=== PATIENT | male | born 1990 | race Two or more races ===

== ENCOUNTER 2022-05-02 12:24 | Emergency (ER) | payer MEDICAID, SELFPAY ==
--- NOTE | ~2022-05-02 | XR_ITS ---
EXAMINATION: XR SHOULDER, RIGHT CLINICAL INFORMATION: Pain. COMPARISON: None TECHNIQUE: AP external rotation, Grashey, scapular Y, and axillary views of the right shoulder. FINDINGS: The bones and soft tissues are normal. No fracture. Glenohumeral and acromioclavicular alignment is anatomic with normal joint space. No abnormal soft tissue calcifications. XR/XR shoulder RT min 2V IMPRESSION: Normal right shoulder.
[2022-05-02 12:31] VITALS: PULSE 100; RESP 16; TEMP 36.6; O2SAT 97; BMI 32.3
--- NOTE | 2022-05-02 15:52 | ED_ITS ---
HPI - Extremity Problem General Chief complaint: Extremity Injury, Upper Stated complaint: R shoulder pain Time Seen by Provider: 05/02/22 15:51 Source: patient Mode of arrival: ambulatory Limitations: no limitations History of Present Illness HPI Narrative: 32 yo male who is right handed here with complaints of acute on chronic right shoulder pain with radiation down the right arm x weeks. Patient reports [facility] while he was incarcerated he had some pain in the same arm after doing heavy weight lifting. it seemed to improve however his current job requires heavy lifting and for the last few weeks he has had worsening pain in the right shoulder which radiates down the limb. No reports of associated weakness, numbness, tingling of the extremity. Related Data Previous Rx's Medication Instructions Recorded cyclobenzaprine 10 mg tablet 10 mg PO TID PRN muscle spasm #20 05/02/22 tabs ibuprofen 800 mg tablet 800 mg PO TID PRN pain #30 tabs 05/02/22 prednisone 20 mg tablet 40 mg PO DAILY #10 tabs 05/02/22 Allergies Allergy/AdvReac Type Severity Reaction Status Date / Time No Known Allergies Allergy Verified 05/02/22 12:31 [No Known Allergies*] Review of Systems Review of Systems: Yes all other systems are reviewed and are negative Constitutional: Constitutional: Reports no additional constitutional complaints, Denies body ache(s), Denies chills, Denies fever(s), Denies headache(s) and Denies weakness Eyes: Eyes: Reports no additional eye complaints and Denies change in vision ENT: Reports system reviewed and no additional complaints, except as documented, Denies dizziness, Denies headache(s), Denies nasal congestion, Denies nasal discharge and Denies neck pain Cardiovascular: Cardiovascular: Reports no additional cardiovascular complaints, Denies chest pain, Denies leg edema and Denies dyspnea Respiratory: Respiratory: Reports no additional respiratory complaints, Denies cough and Denies dyspnea Gastrointestinal: Gastrointestinal: Reports no additional gastrointestinal complaints, Denies abdominal pain, Denies diarrhea, Denies nausea and Denies vomiting Genitourinary: Genitourinary: Denies urinary incontinence Musculoskeletal: Musculoskeletal: Reports no additional musculoskeletal complaints, Denies back pain, Reports arthralgias, Denies joint swelling, Reports limited range of motion, Denies neck pain, Denies numbness and Denies tingling Integumentary/Breasts: Skin/Breast: Reports system reviewed and no additional complaints, except as docu and Denies rash Neurologic: Reports system reviewed and no additional complaints, except as documented, Denies Abnormal speech present, Denies dizziness, Denies headache(s), Denies numbness, Denies tingling and Denies weakness PMFSH Past Medical History Attestation statement: The following information was validated with the patient. Source: old records reviewed and nursing notes reviewed Social History Social History Advance Directives: No Advance Directives Information Provided: No Physical Exam Vital Signs: Vital Signs: Last Vital Signs Temp 98.6 F 05/02/22 15:55 Pulse 96 05/02/22 15:55 Resp 16 05/02/22 12:31 BP 120/70 05/02/22 15:55 Pulse Ox 98 05/02/22 15:55 O2 Del Method 05/02/22 15:55 BMI result Body Mass Index 32.3 Const: General: cooperative, healthy appearing, comfortable and no acute distr ess Orientation/consciousness: patient oriented x3 Limitations: no limitations HEENT: Head: Yes normal to inspection Ears: hearing grossly normal bilaterally General nose exam: Normal external nose present Face and sinus: Yes normal facial exam Mouth: Normal oral and palatal mucosa present Throat: Yes posterior oropharynx normal Eyes: General: appearance normal, both eyes and all related structures Pupils: Equal, round and reactive pupils present Neck: Other: no cervical midline tenderness/step offs or deformities with FROM Neck: Yes normal visual inspection Neck images: 1. Tenderness over the right trapezius with +palpable muscle spasm +spurlings test. Pain improved with abduction of the shoulder Chest: Chest palpation & inspection: normal inspection of the chest Resp: Effort & Inspection: normal respiratory effort Auscultation: clear to auscultation bilaterally Cardio: Rate: regular rate Rhythm: regular rhythm Peripheral pulses: Peripheral pulses 2+ throughout GI: Inspection: Yes normal to inspection Palpation (GI): Soft to palpation and nontender Auscultation: normal bowel sounds Back/Spine/Pelvis: Thoracic/Lumbar Spine: thoracic and lumbar spine normal to inspection Skin: General skin exam: no rashes or lesions noted Neuro: General: patient oriented x3, moves all extremities, no focal motor deficits and normal sensation to monofilament Cranial nerves: Yes Equal, round and reactive pupils present Cognition (Neuro): normal cognition S peech: No Abnormal speech present Gait exam (Neuro): Normal gait present Motor exam (neuro): 5/5 motor strength present throughout Sensory Exam: Normal double simultaneous stimulation for sensation Extrem: Other: FROM of right shoulder. 5/5 strength. NV intact distally. 2+ radial/ulnar pulses. General: Yes normal to inspection, Yes full ROM and Yes capillary refill normal Course Course Course Narrative: X-rays show no bony abnormality. Exam c/w with cervical radiculopathy. Will start NSAID, low dose muscle relaxant, prednisone course. Recommend establishing a PCP for follow-up. Reviewed worrisome signs/symptoms with patient and when to seek additional care. Comfortable with discharge home. MDM - Extremity (Nontraumatic) MDM Narrative Medical decision making narrative: 32 yo male here with acute on chronic right shoulder pain with radiation down the right arm with no associated weakness/numbness/tingling. On exam patient has palpable muscle spasm and tenderness over the right trapezius with FROM of the right upper extremity. +Spurlings test and improvement with shoulder abduction indicative of cervical radiculopathy. No neurological deficits or red flag symptoms. Considered cord compression but less lilely with normal strength of UE, no weakness/numbness/tingling reported Considered epidural abscess but less likely with no history of immunocompromised state, no fevers, chills reported and normal neuro exam. X-rays of shoulder ordered from triage Medical Records Attestation: I reviewed the patient's medical records. Lab Data Attestation: I reviewed the patient's lab results. Imaging Data right shoulder x-ray: Attestation: I personally reviewed and interpreted this imaging study as follows: Radiologist's impression: EXAMINATION: XR SHOULDER, RIGHT CLINICAL INFORMATION: Pain.? COMPARISON: None? TECHNIQUE: AP external rotation, Grashey, scapular Y, and axillary views of the right shoulder. FINDINGS: The bones and soft tissues are normal. No fracture. Glenohumeral and acromioclavicular alignment is anatomic with normal joint space. No abnormal soft tissue calcifications.? XR/XR shoulder RT min 2V IMPRESSION: Normal right shoulder. Discharge Plan Discharge Clinical Impression: Cervical radiculopathy Patient Disposition: Home, Self-Care Instructions: Cervical Radiculopathy (ED) Additional Instructions: Heat to the area gentle massage No heavy lifting for a few days Establish a PCP Prescriptions: New ibuprofen 800 mg tablet 800 mg PO TID PRN (Reason: pain) Qty: 30 0RF cyclobenzaprine 10 mg tablet 10 mg PO TID PRN (Reason: muscle spasm) Qty: 20 0RF prednisone 20 mg tablet 40 mg PO DAILY Qty: 10 0RF Stand Alone Forms: Work/School Release Interventions: ED Discharge Assessment Last Done: 05/02/22 16:09 Discharge Date/Time: 05/02/22 16:10
[2022-05-02 15:55] VITALS: BP 120/70; PULSE 96; TEMP 37; O2SAT 98
== END 2022-05-02 16:10 | disposition home or self-care (01) ==
LOC: HO.ED 16:06
PROVIDERS: Emergency Provider Emergency Medicine
DX: M54.12 Radiculopathy, cervical region (principal); M25.511 Pain in right shoulder
CPT/HCPCS: 73030; 99283

== ENCOUNTER 2023-01-11 22:44 | Emergency (ER) | payer OTHER, SELFPAY ==
[2023-01-11 22:49] VITALS: BP 142/92; PULSE 87; RESP 16; O2SAT 98; BMI 26.6
[2023-01-11] MEDS: Ondansetron ODT 4 MG TAB.RAPDIS TRANSLINGU (23:06)
[2023-01-11] MEDS: Famotidine 20 MG TABLET PO (23:06)
--- NOTE | 2023-01-12 00:24 | ED_ITS ---
HPI - Alcohol General Chief Complaint: ETOH/Substance Use Stated Complaint: ETOH/Vomiting Time Seen by Provider: 01/11/23 22:58 Source: patient Mode of arrival: ambulatory Limitations: no limitations History of Present Illness HPI narrative: Patient had alcohol drinks outside liquor store been complaining of vomiting with mild epigastric pain no history of pancreatitis no fever no chills no history of similar complaints in the past Related Data Previous Rx's Medication Instructions Recorded cyclobenzaprine 10 mg tablet 10 mg PO TID PRN muscle spasm #20 05/02/22 tabs ibuprofen 800 mg tablet 800 mg PO TID PRN pain #30 tabs 05/02/22 prednisone 20 mg tablet 40 mg PO DAILY #10 tabs 05/02/22 famotidine 40 mg tablet (Pepcid) 40 mg PO DAILY #14 tabs 01/12/23 ondansetron 4 mg disintegrating 4 mg PO Q6-8H PRN nausea and 01/12/23 tablet vomiting #7 tabs Allergies Allergy/AdvReac Type Severity Reaction Status Date / Time No Known Allergies Allergy Verified 05/02/22 12:31 [No Known Allergies*] Review of Systems Review of Systems: Yes all other systems are reviewed and are negative [facility] Social History Social History Alcohol intake: current Alcohol type: beer and wine Smoked in Last 30 Days: Yes Use of substances other than those prescribed or required for medical reasons: No Advance Directives: No Advance Directives Information Provided: Yes Physical Exam ED Vital Signs: Vital Signs - 24 hr 01/11/23 22:49 Pulse Rate 87 Respiratory Rate 16 Blood Pressure 142/92 H Pulse Oximetry 98 Oxygen Delivery Method Room Air BMI result Body Mass Index 26.6 Appearance: Alert. Oriented X3. No acute distress. Eyes: PERRLA, No Nystagmus no pallor or icterus ENT: Pharynx normal. Oral Mucosa moist Neck: Normal inspection. Neck supple. CVS: Normal heart rate and rhythm. Pulses normal. Respiratory: No respiratory distress. Equal air entry bilateral, no wheezing/rales/rhonchi Abdomen: Soft and mild epigastric tenderness Bowel sounds are present, no mass palpable, no CVA tenderness Skin: Skin warm and dry. Normal skin color. Normal skin turgor. Neuro: Oriented X 3. No motor deficit. Medical Decision Making Medical Decision Making MDM Narrative: Patient with alcoholic gastritis taking p.o. fluids now feeling much better after Zofran and Pepcid will discharge patient Medications Administered Discontinued Medications Generic Name Dose Route Start Last Admin Trade Name Freq PRN Reason Stop Dose Admin Famotidine 20 mg 01/11/23 23:00 01/11/23 23:06 Famotidine 20 Mg Tablet PO 01/11/23 23:01 20 mg ONCE ONE Administration Ondansetron HCl 4 mg 01/11/23 23:00 01/11/23 23:06 Ondansetron Odt 4 Mg Tab.Rapdis TRANSLINGU 01/11/23 23:01 4 mg ONCE ONE Administration Discharge Plan Discharge Clinical Impression: Acute alcoholic gastritis Patient Disposition: Home, Self-Care Instructions: Gastritis (ED) Additional Instructions: Drink plenty of fluids Pepcid for gastritis Zofran for nausea as needed stop drinking alcohol Prescriptions: New famotidine [Pepcid] 40 mg tablet 40 mg PO DAILY Qty: 14 0RF ondansetron 4 mg tablet,disintegrating 4 mg PO Q6-8H PRN (Reason: nausea and vomiting) Qty: 7 0RF No Action ibuprofen 800 mg tablet 800 mg PO TID PRN (Reason: pain) Qty: 30 0RF cyclobenzaprine 10 mg tablet 10 mg PO TID PRN (Reason: muscle spasm) Qty: 20 0RF prednisone 20 mg tablet 40 mg PO DAILY Qty: 10 0RF
== END 2023-01-12 00:26 | disposition home or self-care (01) ==
PROVIDERS: Emergency Provider Internal Medicine; PCP Family Medicine
DX: K29.20 Alcoholic gastritis without bleeding (principal); F10.20 Alcohol dependence, uncomplicated; Y90.9 Presence of alcohol in blood, level not specified
CPT/HCPCS: 99283; 99284

== ENCOUNTER 2023-04-19 12:49 | Emergency (ER) | payer OTHER, SELFPAY ==
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
--- NOTE | ~2023-04-19 | CT_ITS ---
Attempted CT scan chest abdomen and pelvis. Preliminary fertilizer supervisor views acquired. Exam was aborted. Patient refused the study.
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
[2023-04-19 13:19] VITALS: BP 142/86; PULSE 68; RESP 18; TEMP 36.6; O2SAT 98; BMI 27.4
[2023-04-19 13:58] LABS: MANUAL DIFF FLAG NO
[2023-04-19 14:03] LABS: Basophils Absolute Auto 0.1 X10*3/uL (0.0-0.2); Basophils Percent Auto 0.8 % (0-2); Eosinophils Absolute Auto 0.3 X10*3/uL (0.0-0.4); Eosinophils Percent Auto 3.1 % (0-4); Hematocrit 43.5 % (42.0-52.0); Hemoglobin 14.7 g/dl (14.0-18.0); Imm Gran Abs Auto 0.02 X10*3/uL (0.00-0.03); Imm Gran Pct Auto 0.2 % (0.0-0.4); Lymphocytes Absolute Auto 2.7 X10*3/uL (1.2-4.9); Lymphocytes Percent Auto 29.1 % (20-40); Mean Corpuscular HGB Conc 33.8 g/dl (31.0-36.0); Mean Corpuscular Volume 97.5 fL (80.0-98.0); Mean Platelet Volume 9.4 fL (9.4-12.4); Monocytes Absolute Auto 1.2 X10*3/uL (0.1-1.2); Monocytes Percent Auto 13.4 % (2-11); Neutrophils Absolute Auto 4.9 x10*3/uL (2.0-8.3); Neutrophils Percent Auto 53.4 % (45-73); Platelet Count 279 X10*3/uL (160-400); Red Blood Count 4.46 X10*6/uL (4.60-5.80); Red Cell Distribution Width 12.1 % (11.0-16.0); White Blood Count 9.2 X10*3/uL (4.8-10.8)
[2023-04-19 14:05] LABS: INTERNATIONAL NORM RATIO 0.9 (0.9-1.1); Prothrombin Time 10.7 SEC (11.1-13.3)
[2023-04-19 14:08] LABS: Partial Thromboplastin Time 30.8 SEC (26.0-36.4)
[2023-04-19 14:16] LABS: Alanine Aminotransferase 41 U/L (0-40); Albumin Level 4.3 g/dL (3.5-5.0); Alkaline Phosphatase 71 U/L (39-117); Anion Gap 14 (12-20); Aspartate Amino Transferase 90 U/L (5-37); Bilirubin Direct 0.4 mg/dL (0.0-0.5); Bilirubin Total 1.1 mg/dL (0.0-1.0); Blood Urea Nitrogen 11 mg/dL (9-16); Calcium 9.6 mg/dL (8.4-10.2); Carbon Dioxide 27 mmol/L (22-29); Chloride 101 mmol/L (96-108); Creatinine Clr Calc Pharmacy 114.1; Estimated Glomerular Filt Rate > 60; Glucose Random 119 mg/dL (60-115); Magnesium 2.2 mg/dL (1.6-2.6); Potassium 3.8 mmol/L (3.3-5.1); Sodium 138 mmol/L (135-145); Total Protein 7.8 g/dL (6.5-8.0)
--- NOTE | 2023-04-19 14:37 | ECG_ITS ---
Test Reason : chest pain Blood Pressure : / mmHG Vent. Rate : 073 BPM Atrial Rate : 073 BPM P-R Int : 098 ms QRS Dur : 094 ms QT Int : 386 ms P-R-T Axes : -09 032 014 degrees QTc Int : 425 ms Sinus rhythm with short ME Early repolarization Otherwise normal ECG No previous ECGs available Referred By: Tami Estrada Electronically Signed By:Edvin Emery
[2023-04-19 15:54] LABS: Troponin-I High Sensitivity < 2.7 ng/L (<3.5-35.0)
== END 2023-04-19 16:38 | disposition home or self-care (01) ==
PROVIDERS: Physician Assistant; Physician Assistant Medical; Emergency Provider Student in an Organized Health Care Education/Training Program
DX: S29.9XXA Unspecified injury of thorax, initial encounter (principal); S52.502A Unspecified fracture of the lower end of left radius, initial encounter for closed fracture; S80.12XA Contusion of left lower leg, initial encounter; M54.50 Low back pain, unspecified; R51.9 Headache, unspecified; M54.6 Pain in thoracic spine; R07.89 Other chest pain; Y04.2XXA Assault by strike against or bumped into by another person, initial encounter; M54.2 Cervicalgia; Y93.9 Activity, unspecified; Y92.9 Unspecified place or not applicable; Y99.9 Unspecified external cause status; Z79.899 Other long term (current) drug therapy
CPT/HCPCS: 36415; 70450; 71260; 72125; 73090; 73110; 74177; 80048; 80076; 83735; 84484; 85025; 85610; 85730; 93005; 99283; 99284

== ENCOUNTER → 2023-04-19 14:37 | Outpatient (BNV) | payer OTHER, SELFPAY | PROVIDERS: Emergency Provider Student in an Organized Health Care Education/Training Program; Visit Provider Internal Medicine Cardiovascular Disease | DX: R07.9 Chest pain, unspecified (principal) | CPT/HCPCS: 93010 ==

== ENCOUNTER 2023-04-20 11:02 | Emergency (ER) | payer OTHER, SELFPAY ==
[2023-04-20 11:12] VITALS: BP 125/75; PULSE 71; RESP 18; TEMP 37; O2SAT 98; BMI 27.4
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
--- OUTSIDE RECORDS SUMMARY | 2023-04-20 11:17 | XMS_ITS | Continuity of Care Document ---
Author Name Unknown Organization [facility] Adult Address [address] [place] [address]- Care Team Providers Care Slab Installer Name Role Phone Not on Staff, PCP Primary Care Physician Unavail able Encounter [facility] Date(s): 08/18/22 - 11/27/22 [facility] Adult [address] [place] [id number] Attending Physician: Not on Staff, Attending MD Allergies, Adverse Reactions, Alerts Substance Reaction Severity [...] Gm, 0 Refills, Maintenance, 08/03/18 16:46:34 EST, [place] Start Date: 08/03/18 Status: Ordered Keflex monohydrate [...] Related Persons Name: MADINA LANDEROS Address: home [address] [place] [id number] Name: SESAR KAUFMAN Address: home [address] [place] [address] Name: PATIENT STATES, NONE
--- OUTSIDE RECORDS SUMMARY | 2023-04-20 11:17 | XMS_ITS | Continuity of Care Document ---
Author Name Unknown Organization [facility] Adult Address [address] [place] [address]- Care Team Providers Care Sock Drier Name Role Phone Not on Staff, PCP Primary Care Physician Unavail able Encounter [facility] [place] Date(s): 10/28/22 - 11/27/22 [facility] Adult [address] [place] [id number] Attending Physician: Jazmín Rush Admitting Physician: AdmJazmín faustin Referring Physician: AdmtrJazmín Allergies, Adverse Reactions, Alerts Substance Reaction Severity [...] Gm, 0 Refills, Maintenance, 08/03/18 16:46:34 EST, [place] Start Date: 08/03/18 Status: Ordered Keflex monohydrate [...] Persons Name: MADINA LANDEROS Address: home [address] [place] [place] [address] Name: SESAR KAUFMAN Address: home [address] [place] [address] Name: PATIENT STATES, NONE
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
== END 2023-04-20 12:01 | disposition home or self-care (01) ==
PROVIDERS: Emergency Provider Student in an Organized Health Care Education/Training Program
DX: S52.502A Unspecified fracture of the lower end of left radius, initial encounter for closed fracture (principal); M79.602 Pain in left arm; X58.XXXA Exposure to other specified factors, initial encounter; Y93.9 Activity, unspecified; Y92.9 Unspecified place or not applicable; Y99.9 Unspecified external cause status; Z79.899 Other long term (current) drug therapy
CPT/HCPCS: 29105; 99282; 99284

== ENCOUNTER 2023-04-26 13:45 | Outpatient (REF) | payer OTHER, SELFPAY ==
--- NOTE | ~2023-04-26 | XR_ITS ---
EXAMINATION: XR WRIST, LEFT CLINICAL INFORMATION: Pain. COMPARISON: Radiograph left wrist 04/19/2023. TECHNIQUE: PA, lateral, and oblique views of the left wrist. FINDINGS: Comminuted intra-articular distal radial fracture with similar appearance and alignment compared to 04/19/2023, including persistent mild mild ventral/palmar angulation of the distal fragment on the lateral view. No significant osseous bridging or callus formation. No interval injuries. XR/XR wrist LT min 3V IMPRESSION: Distal radial fracture with similar appearance and alignment compared to 04/19/2023.
== END 2023-04-26 13:46 | disposition home or self-care (01) ==
LOC: HO.HOSX 13:45
PROVIDERS: Visit Provider Physician Assistant
DX: S52.502A Unspecified fracture of the lower end of left radius, initial encounter for closed fracture (principal)
CPT/HCPCS: 73110; 99202

== ENCOUNTER 2023-04-26 13:45 | Outpatient (AMB) | payer OTHER, SELFPAY ==
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
== END 2023-04-26 15:36 | disposition home or self-care (01) ==
PROVIDERS: Visit Provider Physician Assistant
DX: S52.515A Nondisplaced fracture of left radial styloid process, initial encounter for closed fracture (principal); Y04.8XXA Assault by other bodily force, initial encounter
CPT/HCPCS: 25600; 99203

== ENCOUNTER 2023-05-02 04:58 | Outpatient (REF) | payer OTHER, SELFPAY ==
--- NOTE | ~2023-05-02 | XR_ITS ---
EXAMINATION: XR HAND, LEFT CLINICAL INFORMATION: Pain. COMPARISON: Radiographs dated 04/26/2023 and 04/19/2023. TECHNIQUE: PA, lateral, and oblique views of the left hand. FINDINGS: There is stable alignment of a medially displaced fracture of the distal left radius, with intra-articular extension. No dislocation is seen. The proximal and distal carpal rows are intact. There is no focal soft tissue swelling, gas or foreign body. XR/XR hand LT min 3V IMPRESSION: There is stable alignment of a mildly displaced distal left radius fracture, with intra-articular extension of the fracture line. There is no significant new callus formation.
== END 2023-05-02 04:59 | disposition home or self-care (01) ==
LOC: HO.HOSX 04:58
PROVIDERS: Visit Provider Orthopaedic Surgery
DX: M79.642 Pain in left hand (principal)
CPT/HCPCS: 73130

== ENCOUNTER 2023-05-03 08:56 | Outpatient (AMB) | payer OTHER, SELFPAY ==
[2023-05-03 09:20] VITALS: BMI 27.4
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
== END 2023-05-03 10:20 | disposition home or self-care (01) ==
PROVIDERS: Visit Provider Orthopaedic Surgery
DX: S52.515A Nondisplaced fracture of left radial styloid process, initial encounter for closed fracture (principal)
CPT/HCPCS: 29075; 99024

== ENCOUNTER → 2023-05-03 08:56 | Outpatient (BNVA) | payer OTHER, SELFPAY | PROVIDERS: Visit Provider Orthopaedic Surgery ==

== ENCOUNTER 2023-06-07 14:25 | Outpatient (REF) | payer OTHER, SELFPAY | END 2023-06-07 14:26 | disposition home or self-care (01) | LOC: HO.HOSX 14:25 | PROVIDERS: Visit Provider Orthopaedic Surgery | DX: Z13.89 Encounter for screening for other disorder (principal) ==

== ENCOUNTER 2023-06-23 08:14 | Outpatient (REF) | payer OTHER, SELFPAY ==
--- NOTE | ~2023-06-23 | XR_ITS ---
EXAMINATION: XR WRIST, LEFT CLINICAL INFORMATION: Out of cast, radial fracture COMPARISON: 05/03/2023 TECHNIQUE: PA, lateral, and oblique views of the left wrist. FINDINGS: There is stable alignment of a medially displaced fracture of the distal left radius, with intra-articular extension. Fracture line is less visible suggesting some interval callus formation. Moderate degenerative changes first carpometacarpal joint with joint space narrowing and hypertrophic change. XR/XR wrist LT min 3V IMPRESSION: Healing mildly displaced distal left radius fracture, with intra-articular extension of the fracture line and some interval callus formation.
== END 2023-06-23 08:15 | disposition home or self-care (01) ==
LOC: HO.HOSX 08:14
PROVIDERS: Visit Provider Physician Assistant
DX: S52.502D Unspecified fracture of the lower end of left radius, subsequent encounter for closed fracture with routine healing (principal)
CPT/HCPCS: 29075; 73110; 99212

== ENCOUNTER 2023-06-23 09:48 | Outpatient (AMB) | payer OTHER, SELFPAY ==
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
[2023-06-23 10:03] VITALS: BMI 27.4
== END 2023-06-23 11:06 | disposition home or self-care (01) ==
PROVIDERS: Visit Provider Physician Assistant
DX: S52.572D Other intraarticular fracture of lower end of left radius, subsequent encounter for closed fracture with routine healing (principal)
CPT/HCPCS: 99024

== ENCOUNTER 2023-07-29 00:57 | Emergency (ER) | payer OTHER, SELFPAY ==
--- NOTE | ~2023-07-29 | XR_ITS ---
EXAMINATION: XR FEMUR, RIGHT CLINICAL INFORMATION: Pain. COMPARISON: None available. TECHNIQUE: AP and lateral views of the right femur were obtained. FINDINGS: The bone mineralization is normal. There is mild right hip degenerative change with mild osteophyte formation. There is no fracture. The soft tissues are unremarkable. XR/XR femur RT 2V IMPRESSION: No acute osseous abnormality. Mild right hip degenerative change.
[2023-07-29 01:01] VITALS: BP 132/77; PULSE 82; RESP 18; TEMP 36.1; O2SAT 99; BMI 28.2
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
[2023-07-29 01:52] VITALS: BP 128/78; PULSE 73; RESP 16; TEMP 36.8; O2SAT 98
[2023-07-29 02:01] LABS: Basophils Absolute Auto 0.1 X10*3/uL (0.0-0.2); Basophils Percent Auto 0.9 % (0-2); Eosinophils Absolute Auto 0.4 X10*3/uL (0.0-0.4); Eosinophils Percent Auto 4.4 % (0-4); Hematocrit 41.7 % (42.0-52.0); Imm Gran Abs Auto 0.03 X10*3/uL (0.00-0.03); Imm Gran Pct Auto 0.3 % (0.0-0.4); Lymphocytes Absolute Auto 3.6 X10*3/uL (1.2-4.9); Lymphocytes Percent Auto 37.5 % (20-40); MANUAL DIFF FLAG NO; Mean Corpuscular HGB Conc 33.6 g/dl (31.0-36.0); Mean Corpuscular Hemoglobin 32.2 pg (27.0-33.0); Mean Corpuscular Volume 95.9 fL (80.0-98.0); Mean Platelet Volume 9.3 fL (9.4-12.4); Monocytes Absolute Auto 0.9 X10*3/uL (0.1-1.2); Monocytes Percent Auto 9.9 % (2-11); Neutrophils Absolute Auto 4.5 x10*3/uL (2.0-8.3); Platelet Count 283 X10*3/uL (160-400); Red Blood Count 4.35 X10*6/uL (4.60-5.80); Red Cell Distribution Width 12.2 % (11.0-16.0); White Blood Count 9.5 X10*3/uL (4.8-10.8)
[2023-07-29 02:08] LABS: INTERNATIONAL NORM RATIO 0.9 (0.9-1.1); Prothrombin Time 10.5 SEC (11.1-13.3)
[2023-07-29 02:10] LABS: Partial Thromboplastin Time 32.6 SEC (26.0-36.4)
[2023-07-29 02:11] LABS: D Dimer High Sensitivity < 150 NG/ML
[2023-07-29 02:12] LABS: Anion Gap 11 (12-20); Blood Urea Nitrogen 17 mg/dL (9-16); Calcium 9.3 mg/dL (8.4-10.2); Carbon Dioxide 28 mmol/L (22-29); Chloride 103 mmol/L (96-108); Creatinine Clr Calc Pharmacy 111.9; Estimated Glomerular Filt Rate > 60; Glucose Random 86 mg/dL (60-115); Potassium 4.4 mmol/L (3.3-5.1); Sodium 138 mmol/L (135-145)
== END 2023-07-29 03:50 | disposition home or self-care (01) ==
PROVIDERS: Physician Assistant; Emergency Provider Internal Medicine
DX: M79.18 Myalgia, other site (principal); M79.604 Pain in right leg; F17.200 Nicotine dependence, unspecified, uncomplicated
CPT/HCPCS: 36415; 73552; 80048; 85025; 85379; 85610; 85730; 99283; 99284

== ENCOUNTER 2023-08-07 10:38 | Outpatient (REF) | payer SELFPAY | END 2023-08-07 10:39 | disposition home or self-care (01) | LOC: HO.HOSX 10:38 | PROVIDERS: Visit Provider Physician Assistant | DX: Z13.89 Encounter for screening for other disorder (principal) ==

== ENCOUNTER 2024-04-17 17:37 | Emergency (ER) | payer OTHER, SELFPAY ==
--- NOTE | ~2024-04-17 | US_ITS ---
EXAMINATION: US VENOUS ULTRASOUND WITH DOPPLER LOWER EXTREMITY, RIGHT CLINICAL INFORMATION: Right posterior thigh pain. COMPARISON: None available. TECHNIQUE: Ultrasound of the deep veins is performed from the hip to the calf with compression sonography and color and pulse Doppler assessment. Spectral analysis with color-flow imaging is performed. FINDINGS: There is normal venous compression and respiratory variation and augmented flow. The visualized common femoral vein, superficial femoral vein, profunda femoral vein, popliteal vein, and the trifurcation region shows no evidence of deep venous thrombosis. There is no significant popliteal fossa cyst. The area of clinical concern in the posterior thigh, no abnormality is seen. The contralateral left common femoral vein appears normal. If the patient's symptoms persist, followup ultrasound in 5 days 7 days might be of value to exclude proximal propagation from a non-visualized calf vein. US/US venous duplex LE RT IMPRESSION: No DVT demonstrated in the right lower extremity.
[2024-04-17 17:59] VITALS: BP 140/86; PULSE 78; RESP 20; TEMP 36.4; O2SAT 99; BMI 27.4
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
[2024-04-17 20:01] VITALS: BP 116/73; PULSE 76; RESP 20; TEMP 36.5; O2SAT 99
[2024-04-17] MEDS: Acetaminophen 325 MG TABLET 975 MG PO (20:06)
[2024-04-17 20:47] VITALS: BP 116/73; PULSE 76; RESP 20; TEMP 36.5; O2SAT 99
== END 2024-04-17 20:49 | disposition home or self-care (01) ==
PROVIDERS: Emergency Provider Student in an Organized Health Care Education/Training Program
DX: M79.604 Pain in right leg (principal); R60.0 Localized edema
CPT/HCPCS: 93971; 99284